=== PATIENT | male | born 1975 | race Caucasian/White ===

== ENCOUNTER 2018-11-21 11:20 | Emergency (ER) | payer OTHER, SELFPAY ==
[2018-11-21 11:27] VITALS: BP 127/76; PULSE 64; RESP 12; TEMP 36.7; O2SAT 98
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
== END 2018-11-21 13:22 | disposition home or self-care (01) ==
PROVIDERS: Emergency Provider Emergency Medicine
DX: S42.022A Displaced fracture of shaft of left clavicle, initial encounter for closed fracture (principal); V17.0XXA Pedal cycle driver injured in collision with fixed or stationary object in nontraffic accident, initial encounter; I10 Essential (primary) hypertension
CPT/HCPCS: 99283; 73030; 99282; L3650

== ENCOUNTER 2018-11-21 17:33 | Emergency (ER) | payer OTHER, SELFPAY ==
[2018-11-21 17:35] VITALS: BP 111/76; PULSE 71; RESP 16; TEMP 36.7; O2SAT 94
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
--- NOTE | 2018-11-21 18:47 | DI.RAD_ITS ---
SYMPTOMS/DIAGNOSIS: RIB FX BILATERAL RIBS AND CHEST X-RAY: The heart size and pulmonary vasculature are within normal limits. The lungs are clear and well expanded. No effusions or pneumothoraces are identified. There is a minimal displaced fracture involving the lateral aspect of the left fifth rib. Note is again made of a comminuted displaced fracture of the mid shaft of the left clavicle. IMPRESSION: 1. Fracture involving the lateral aspect of the left fifth rib. 2. Comminuted displaced left mid clavicular fracture.
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
== END 2018-11-21 19:37 | disposition home or self-care (01) ==
PROVIDERS: Emergency Provider Emergency Medicine
DX: S22.32XA Fracture of one rib, left side, initial encounter for closed fracture (principal); V17.0XXA Pedal cycle driver injured in collision with fixed or stationary object in nontraffic accident, initial encounter
CPT/HCPCS: 99283; 71046; 71110